=== PATIENT | female | born 1960 | race Caucasian/White ===

== ENCOUNTER 2017-01-04 19:06 | Observation (INO) ==
[2017-01-04 19:37] LABS: Basophils % 0.2 %; Eosinophils % 0.5 %; Hemoglobin 9.2 g/dL (11.5-15.4); Lymphocytes # 0.6 K/mcL (0.6-4.6); Lymphocytes % 9.5 %; Mean Corpuscular HGB Conc 32.9 g/dL (31.6-35.5); Mean Corpuscular Volume 91.2 fL (83.0-100.0); Mean Platelet Volume 9.9 fL (9.4-12.4); Monocytes # 0.3 K/mcL (0.0-1.3); Monocytes % 5.2 %; Neutrophils # 4.8 K/mcL (1.6-8.9); Red Blood Count 3.07 M/mcL (3.82-4.97); Red Cell Distribution Width 15.2 % (11.5-14.5); Segmented Neutrophils % 83.6 %
[2017-01-04 19:39] LABS: Platelet Count 65 K/mcL (140-400)
--- NOTE | 2017-01-04 19:42 | Emergency Department Note ---
Disposition Clinical Impression: Hyperkalemia Disposition: Admitted As Inpatient Condition: Good Referrals: Adria Alba CNP [Primary Care Provider] - Forms: ED Satisfaction Letter Time of Disposition: 19:58 Recheck wound or abnormal lab - General Chief Complaint: ED Recheck/Abnormal Lab/Rx Stated Complaint: Possible Hyperkalemia Time Seen by Provider: 01/04/17 19:15 Source: patient Mode of arrival: ambulatory Limitations: no limitations, physical limitation Nursing Notes Reviewed: Yes Vital Signs Reviewed: Yes - History of Present Illness HPI Narrative: Patient received a phone call from Adria Alba that her potassium was too high and she did not emergency room immediately she was not given a number she is here she denies any complaints at this time she is status post renal transplant in 2010 as had few complications since then any additional complaints Pt Subjective Complaint: abnormal lab(s) Context: called for abnormal lab result Associated symptoms: none - Related Data Home Medications Medication Instructions Recorded Confirmed Allopurinol [Zyloprim] 300 mg PO DAILY 01/04/17 01/04/17 Atorvastatin [Lipitor] 20 mg PO HS 01/04/17 01/04/17 Benazepril HCl [Lotensin] 30 mg PO 01/04/17 Carvedilol [Coreg] 25 mg PO BID 01/04/17 01/04/17 CycloSPORINE, Mod (Neoral) [Neoral] 75 mg PO BID 01/04/17 01/04/17 Escitalopram [Lexapro] 10 mg PO DAILY 01/04/17 01/04/17 Famotidine [Pepcid] 20 mg PO QPM 01/04/17 01/04/17 Ferrous Sulfate [Iron] 325 mg PO 01/04/17 Folic Acid 1 mg PO DAILY 01/04/17 01/04/17 Mycophenolate Mofetil [Cellcept] 500 mg PO BID 01/04/17 01/04/17 PredniSONE 7.5 mg PO DAILY 01/04/17 01/04/17 Sulfamethoxazole/Trimethoprim 1 each PO DAILY 01/04/17 01/04/17 [Sulfamethoxazole-Tmp Ss Tablet] Allergies Allergy/AdvReac Type Severity Reaction Status Date / Time Penicillins [PCN] Allergy Anaphylaxis Verified 01/04/17 19:19 All systems ED: reviewed and negative except as stated. Constitutional: Denies: fever, chills, weakness Eyes: Denies: vision change ENT ED: Denies: ear pain Cardiovascular: Denies: chest pain Respiratory: Denies: cough Gastrointestinal: Denies: abdominal pain Genitourinary: Denies: urgency Musculoskeletal: Denies: back pain Integumentary: Denies: abrasion Neurological: Denies: headache Psychiatric: Denies: anxiety Endocrine: Reports: fatigue Hematological/Lymphatic: Denies: easy bleeding Allergic/Immunologic: Denies: facial swelling Past Medical History - Past Medical History Attestation: Yes The following information was validated with the patient. Source: patient, old records reviewed, nursing notes reviewed Medical history: Reports: arthritis, GERD, hyperlipidemia, hypertension, osteoporosis, renal disease, other Psychiatric history: Reports: anxiety, depression - Social History Smoking Status: Never smoker Smokeless Tobacco Status: No Alcohol use: Reports: none Drug use: Reports: none Physical Exam - General Limitations: no limitations, physical limitation General appearance: alert, in no apparent distress - Head Head exam: atraumatic, normocephalic, normal inspection - Eye Eye exam: Present: normal appearance, PERRL, EOMI (Slight amount of erythema noted in the superior and inferior lids noted an little bit of an ashen color that this appears to be more of her normal collar by looking at her skin) - ENT ENT exam: normal exam, normal oropharynx, mucous membranes moist, normal external ear exam - Neck Neck exam: Present: normal inspection, full ROM, trachea midline - Chest Chest inspection: Present: normal inspection, symmetric chest wall rise - Respiratory Respiratory exam: Present: normal lung sounds bilaterally - Cardiovascular Cardiovascular exam: Present: regular rate, normal rhythm, normal heart sounds - Abdominal Exam Abdominal exam: Present: soft, Non-Tender, normal bowel sounds - Expanded Upper Extremity Exam Shoulder exam: Present: normal inspection, full ROM Arm exam: Present: normal inspection, full ROM Elbow exam: Present: normal inspection, full ROM Forearm/Wrist exam: Present: normal inspection, full ROM Hand exam: Present: normal inspection, full ROM Vascular exam: Normal: capillary refill, radial pulse - Expanded Lower Extremity Exam Hip/Pelvis exam: Present: normal inspection, full ROM Upper leg exam: Present: normal inspection, full ROM Knee exam: Present: normal inspection, full ROM Lower leg exam: Present: normal inspection, full ROM Ankle exam: Present: normal inspection, full ROM Foot/toe exam: Present: normal inspection, full ROM Neurovascular/Tendon exam: Present: normal capillary refill, normal fine/light touch. Absent: motor deficit, sensory deficit, tendon deficit Gait: observed and normal - Back Exam Back exam: Present: normal inspection, full ROM. Absent: muscle spasm - Neurological Exam Neurological exam: Present: alert, oriented X3, CN II-XII intact - Psychiatric Psychiatric exam: Present: normal affect, normal mood - Skin Skin exam: Present: warm, dry, intact, normal color Course Course Narrative: Patient seen and examined have repeated awaiting results - Reevaluation(s) Reevaluation #1: She will with potassium of 6.6 so agreed to the Kayexalate and treatment management discharged home stable Vital Signs Temperature 98.4 F 01/04/17 19:07 Pulse Rate 110 01/04/17 19:07 Respiratory Rate 18 01/04/17 19:07 Blood Pressure 149/55 01/04/17 19:07 O2 Sat by Pulse Oximetry 97 01/04/17 19:07 Temperature 98.4 F 01/04/17 19:20 Pulse Rate 110 01/04/17 19:20 Respiratory Rate 18 01/04/17 19:20 Blood Pressure 149/55 01/04/17 19:20 O2 Sat by Pulse Oximetry 97 01/04/17 19:20 Oxygen Delivery Oxygen Delivery Room Air Recheck wound or abnormal lab - MDM Narrative Medical decision making narrative: Hyperkalemia versus hypokalemia versus normal potassium - Medical Records Medical records reviewed: Yes I reviewed the patient's medical records. - Lab Data Lab results reviewed: Yes I reviewed the patient's lab results. Result diagrams: 01/04/17 19:23 01/04/17 19:23 Lab Results 01/04/17 01/04/17 Range/Units 19:23 19:23 WBC 5.8 (4.3-11.1) K/mcL RBC 3.07 L (3.82-4.97) M/mcL Hgb 9.2 L (11.5-15.4) g/dL Hct 28.0 L (35.3-44.9) % MCV 91.2 (83.0-100.0) fL MCH 30.0 (28.0-33.3) pg MCHC 32.9 (31.6-35.5) g/dL RDW 15.2 H (11.5-14.5) % Plt Count 65 L (140-400) K/mcL MPV 9.9 (9.4-12.4) fL Immature Gran % 1.0 (0-4) % Seg Neutrophils % 83.6 % Lymphocytes % 9.5 % Monocytes % 5.2 % Eosinophils % 0.5 % Basophils % 0.2 % Neutrophils # 4.8 (1.6-8.9) K/mcL Lymphocytes # 0.6 (0.6-4.6) K/mcL Monocytes # 0.3 (0.0-1.3) K/mcL Eosinophils # 0.0 (0.0-0.6) K/mcL Basophils # 0.0 (0.0-0.2) K/mcL Sodium 132 L (136-145) mEq/L Potassium 6.6 H* (3.5-4.5) mEq/L Chloride 109 (98-109) mEq/L Carbon Dioxide 13 L (19-29) mEq/L BUN 59 H (7-20) mg/dL Creatinine 2.16 H (0.57-1.11) mg/dL Est GFR ( Amer) 29 L (> 60) Est GFR (Non-Af Amer) 24 L (> 60) BUN/Creatinine Ratio 27 H (6-26) Glucose 212 H (70-99) mg/dL Calculated Osmolality 297 (280-300) Calcium 9.8 (8.6-10.8) mg/dL Critical Care Time Critical Care Time: Yes Total Critical Care Time: 35 Attestation: Critical care performed: 5 minutes as the result of the high potassium to give her medications to decrease the potassium while here in the emergency room and get it started patient's showing no evidence of ectopy at this time patient be maintained on a monitor received Kayexalate calcium chloride dextrose due to her renal failure previously at this time we will not give any additional fluids spoke with Dr. Silva Time is exclusive of separately billable procedures. Time includes: direct patient care, patient reassessment, coordination of patient care, interpretation of data (laboratory data, radiology data, and respiratory data), review of patient's medical records, medical consultation and documentation of patient care. Procedures included in critical care time: Procedures excluded from critical care time:
[2017-01-04 19:47] LABS: Calcium 9.8 mg/dL (8.6-10.8)
[2017-01-04 19:48] LABS: Potassium 6.6 mEq/L (3.5-4.5)
[2017-01-04] MEDS ORDERED: Insulin Human Regular 10 UNIT in 0.9 % Sodium Chloride 10 ML IV ONE (19:49)
[2017-01-04] MEDS ORDERED: *HR* Dextrose 50 % in Water (Syg) 50 ML SYRINGE IVP ONE (19:49)
[2017-01-04] MEDS ORDERED: Calcium Chloride 1,000 MG in 0.9 % Sodium Chloride 100 ML IVPB ONE (19:49)
[2017-01-04] MEDS ORDERED: Ondansetron ODT 4 MG TAB.RAPDIS SL PRN (21:11)
[2017-01-04] MEDS ORDERED: Naloxone 0.4 MG/ML INJ IVP PRN (21:11)
[2017-01-04] MEDS ORDERED: Acetaminophen 325 MG TABLET PO PRN (21:11)
[2017-01-04] MEDS ORDERED: CycloSPORINE, Mod (Neoral) 25 MG CAPSULE PO SCH (21:11)
[2017-01-05 05:51] LABS: Basophils % 0.2 %; Eosinophils # 0.1 K/mcL (0.0-0.6); Eosinophils % 1.3 %; Hematocrit 26.1 % (35.3-44.9); Hemoglobin 8.4 g/dL (11.5-15.4); Immature Granulocytes % 1.1 % (0-4); Lymphocytes # 0.6 K/mcL (0.6-4.6); Lymphocytes % 12.7 %; Mean Corpuscular HGB Conc 32.2 g/dL (31.6-35.5); Mean Corpuscular Hemoglobin 29.7 pg (28.0-33.3); Mean Corpuscular Volume 92.2 fL (83.0-100.0); Mean Platelet Volume 10.5 fL (9.4-12.4); Monocytes # 0.4 K/mcL (0.0-1.3); Neutrophils # 3.6 K/mcL (1.6-8.9); Red Blood Count 2.83 M/mcL (3.82-4.97); Red Cell Distribution Width 14.9 % (11.5-14.5); Segmented Neutrophils % 76.7 %
[2017-01-05 05:56] LABS: INR 1.1; Prothrombin Time 11.6 Seconds (9.4-12.1)
[2017-01-05 05:59] LABS: Activated Partial Thrombo Time 27.5 Seconds (26.0-36.0)
[2017-01-05 06:05] LABS: Calcium 10.3 mg/dL (8.6-10.8); Magnesium 1.9 mg/dL (1.6-2.6); Phosphorous 2.9 mg/dL (2.3-4.7)
[2017-01-05 06:24] LABS: Potassium 6.5 mEq/L (3.5-4.5)
[2017-01-05 06:34] LABS: Platelet Count 68 K/mcL (140-400)
[2017-01-05] MEDS ORDERED: CYCLOSPORINE 75 MG PO SCH (09:00)
[2017-01-05] MEDS: PredniSONE 5 MG TABLET PO SCH (09:16)
[2017-01-05] MEDS: Sulfamethoxazole/Trimeth DS 1 EACH TABLET PO SCH (09:16)
[2017-01-05] MEDS: Folic Acid 1 MG TABLET PO SCH (09:18)
[2017-01-05] MEDS: CYCLOSPORINE 25 MG PO SCH ×2 (11:06→21:57)
--- NOTE | 2017-01-05 14:37 | Internal Med History&Physical ---
Date of Encounter: 01/05/17 Time of Encounter: 14:05 Assessment and Plan (1) Hyperkalemia Current visit: Yes Status: Acute Suspect due to acute on chronic renal failure. She will be given IV fluids and Kayexalate. Further workup will be done as needed (2) CKD (chronic kidney disease) stage 4, GFR 15-29 ml/min Current visit: Yes Status: Chronic Status post cadaveric kidney transplant 2010. We will give IV fluids and monitor renal indices. (3) Anemia Current visit: Yes Status: Chronic We will check anemia testing in a.m. Qualifiers: Anemia type: unspecified type Qualified Code(s): D64.9 - Anemia, unspecified (4) Hyperglycemia Current visit: Yes Status: Acute We will order hemoglobin A1c in a.m. Internal Medicine - H&P: HPI Chief complaint: Hyperkalemia Admitted From: Home Plans for Post Hospital Care: Home History of present illness: Ms. Diaz is a 56 year old female who came to emergency room at the instruction of her PCP office after hypokalemia was found on blood draw done earlier in the day. Patient denies any complaints but was simply following orders to come to emergency room. She was evaluated and hyperkalemia was confirmed with potassium level 6.6. She had impaired renal function with creatinine 2.16 and estimated GFR of 24. Serum CO2 was 13. She was admitted to [facility] floor for ongoing care needs. She has a history of chronic kidney disease stage V and was on hemodialysis until 2010 she underwent right kidney cadaveric transplant. She follows at [facility] on a every 6-12 month basis. Last visit was November 2016 and she states she received a satisfactory report although she does not know details of renal indices. Creatinine at a April 2015 [facility] hospitalization was 1.39 with an estimated GFR 40. Past Med Surg Social Fam HX - Past Medical History Medical history: arthritis, GERD, hyperlipidemia, hypertension, osteoporosis, renal disease, other Psychiatric history: anxiety, depression - Social History Smoking Status: Never smoker Smokeless Tobacco Status: No Alcohol use: none Drug use: none - Family History Mother Living Status: Father Living Status: Still Living Internal Medicine - H&P: Meds Allopurinol [Zyloprim] 300 mg PO DAILY 01/04/17 [History] Atorvastatin [Lipitor] 20 mg PO HS 01/04/17 [History] Benazepril HCl [Lotensin] 30 mg PO 01/04/17 [History] Carvedilol [Coreg] 25 mg PO BID 01/04/17 [History] CycloSPORINE, Mod (Neoral) [Neoral] 75 mg PO BID 01/04/17 [History] Escitalopram [Lexapro] 10 mg PO DAILY 01/04/17 [History] Famotidine [Pepcid] 20 mg PO QPM 01/04/17 [History] Ferrous Sulfate [Iron] 325 mg PO 01/04/17 [History] Folic Acid 1 mg PO DAILY 01/04/17 [History] Mycophenolate Mofetil [Cellcept] 500 mg PO BID 01/04/17 [History] PredniSONE 7.5 mg PO DAILY 01/04/17 [History] Sulfamethoxazole/Trimethoprim [Sulfamethoxazole-Tmp Ss Tablet] 1 each PO DAILY 01/04/17 [History] Allergies Penicillins [PCN] Allergy (Verified 01/04/17 19:19) Anaphylaxis All Systems PM: A 10-system review of systems was performed and is negative for pertinent findings except as documented above in the HPI. Review of systems: Gen.: Her weight has been stable past few months Cardiovascular: She has a history of hypertension but denies [place] heart failure angina DVT or pulmonary embolus. She thinks she had EST over 10 years ago which was unremarkable Respiratory: She is a lifelong nonsmoker but denies known chronic lung disease. She does use Proventil inhaler when necessary GI: Has GERD but denies disorders of her liver gallbladder or exocrine pancreas : As per history of present illness Neurologic: She denies large distribution strokes or seizures Endocrine: She has hyperlipidemia but denies diabetes or known thyroid disease Hematology/oncology: She denies blood disorders or cancers but does have history of anemia. Psychiatric: She has depression but denies anxiety or other mental health issues Musculoskeletal: She has rheumatoid arthritis and osteoporosis. She has had spinal surgery at [facility] June 2015 with plate and screw procedure for degenerative disc disease. She had postoperative right foot drop but does not routinely uses an AFO splint. She had left hip replacement at age 11 and again at age 39. 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 The implanted joint was removed February 2015 with a spacer placed. She has since had fusion of the joint with nuno insertion. - Constitutional Vitals: Temp Pulse Resp BP Pulse Ox 97.8 F 69 18 145/69 100 01/05/17 10:05 01/05/17 10:05 01/05/17 10:05 01/05/17 10:05 01/05/17 10:05 Exam: Gen.: She is a well-developed well-nourished female who appears in no severe distress at present time. HEENT: Head is atraumatic and normocephalic. Eyes: EOMI. There is no scleral icterus. Mouth: Mucosa is moist. Neck: Supple and nontender. There is no thyromegaly or adenopathy noted. Heart: Regular without murmurs gallops or ectopics. Lungs: No wheezes or crackles heard. Abdomen: She has a large abdomen. It is soft and nontender to palpation. No masses or guarding are noted. Extremities: There is no cyanosis edema or clubbing noted. Dorsalis pedis and posterior tibial pulses are trace palpable bilaterally. She has mild intrinsic muscle atrophy of her hands. Neurologic: Mental status: She is talkative and a good historian. Cranial nerves: Smile is symmetric. Forehead wrinkles bilaterally. Tongue protrudes midline. EOMI. Motor: There is no pronator drift. She has right foot drop. Cerebellar: Finger to nose is intact bilaterally. Skin: Warm and dry Internal Med - H&P Results - Labs CBC & Chem 7: 01/05/17 04:37 01/05/17 04:37 Labs: Short CBC 01/05/17 Range/Units 04:37 WBC 4.6 (4.3-11.1) K/mcL Hgb 8.4 L (11.5-15.4) g/dL Hct 26.1 L (35.3-44.9) % Plt Count 68 L (140-400) K/mcL Neutrophils # 3.6 (1.6-8.9) K/mcL BMP 01/05/17 04:37 Sodium 135 L Potassium 6.5 H* Chloride 111 H Carbon Dioxide 16 L BUN 56 H Creatinine 1.96 H Glucose 119 H Calcium 10.3
[2017-01-05] MEDS: D5% in Water 1,000 ML IVC SCH (15:40)
[2017-01-05] MEDS ORDERED: *HR* Dextrose 50 % in Water (Syg) 50 ML SYRINGE IVP PRN (16:19)
[2017-01-05] MEDS ORDERED: D5% in Water 1,000 ML IV PRN (16:19)
[2017-01-05] MEDS ORDERED: Dextrose Gel 15 GM PO PRN ×2 (16:19)
[2017-01-05] MEDS: Famotidine 20 MG TABLET PO SCH (16:21)
[2017-01-05] MEDS: Insulin LISPRO 300 UNITS/3 ML VIAL SQ SCH ×2 (16:44→21:59)
[2017-01-05] MEDS: MYCOPHENOLATE 500MG PO SCH (21:56)
[2017-01-06] MEDS: D5% in Water 1,000 ML IVC SCH ×2 (04:17→16:48)
[2017-01-06 06:00] LABS: Basophils % 0.2 %; Eosinophils # 0.1 K/mcL (0.0-0.6); Eosinophils % 1.2 %; Hematocrit 25.8 % (35.3-44.9); Hemoglobin 8.4 g/dL (11.5-15.4); Immature Granulocytes % 1.5 % (0-4); Lymphocytes # 0.6 K/mcL (0.6-4.6); Lymphocytes % 14.5 %; Mean Corpuscular HGB Conc 32.6 g/dL (31.6-35.5); Mean Corpuscular Hemoglobin 29.4 pg (28.0-33.3); Mean Corpuscular Volume 90.2 fL (83.0-100.0); Mean Platelet Volume 10.3 fL (9.4-12.4); Monocytes # 0.4 K/mcL (0.0-1.3); Monocytes % 8.5 %; Red Blood Count 2.86 M/mcL (3.82-4.97); Segmented Neutrophils % 74.1 %
[2017-01-06 06:05] LABS: Platelet Count 61 K/mcL (140-400)
[2017-01-06 06:22] LABS: Uric Acid 3.6 mg/dL (2.6-6.0)
[2017-01-06 06:24] LABS: Albumin 3.1 g/dL (3.5-5.0); Albumin/Globulin Ratio 1.5 (1.1-2.2); Bilirubin,Total 0.5 mg/dL (0.2-1.2); Calcium 9.3 mg/dL (8.6-10.8); Globulin 2.1 g/dL (2.4-3.5); Potassium 5.3 mEq/L (3.5-4.5); Total Protein 5.2 g/dL (6.0-8.3)
[2017-01-06] MEDS: Sulfamethoxazole/Trimeth DS 1 EACH TABLET PO SCH (07:55)
[2017-01-06] MEDS: PredniSONE 5 MG TABLET PO SCH (07:56)
[2017-01-06] MEDS: Insulin LISPRO 300 UNITS/3 ML VIAL SQ SCH ×4 (07:57→21:02)
[2017-01-06] MEDS: Folic Acid 1 MG TABLET PO SCH (07:58)
[2017-01-06] MEDS: MYCOPHENOLATE 500MG PO SCH ×2 (08:00→21:06)
[2017-01-06] MEDS: CYCLOSPORINE 25 MG PO SCH ×2 (08:00→21:06)
--- NOTE | 2017-01-06 10:45 | Internal Med Progress Note ---
Date of Encounter: 01/06/17 Time of Encounter: 10:35 - Assessment and plan (1) Hyperkalemia Current Visit: Yes Status: Acute Assessment and plan: January 06. Improved. We will give additional Kayexalate and continue IV fluids. (2) CKD (chronic kidney disease) stage 4, GFR 15-29 ml/min Current Visit: Yes Status: Chronic Assessment and plan: January 06. Improved. Continue IV fluids and monitor renal indices. (3) Anemia Current Visit: Yes Status: Chronic Assessment and plan: January 06. Anemia testing is pending Qualifiers: Anemia type: unspecified type Qualified Code(s): D64.9 - Anemia, unspecified (4) Hyperglycemia Current Visit: Yes Status: Acute Assessment and plan: January 06. Hemoglobin A1c is pending - Subjective Interval history: January 06. She has no new complaints and feels well. - Constitutional Vitals: Temp Pulse Resp BP Pulse Ox 98.2 F 65 18 164/76 98 01/06/17 06:28 01/06/17 06:28 01/06/17 06:28 01/06/17 06:28 01/06/17 06:28 Exam: She is sitting in a chair at bedside and appears comfortable. Her affect is bright and cheerful. I reviewed her medications and lab results Internal Medicine: Result - Labs CBC & Chem 7: 01/06/17 05:25 01/06/17 05:25 Labs: Short CBC 01/06/17 Range/Units 05:25 WBC 4.1 L (4.3-11.1) K/mcL Hgb 8.4 L (11.5-15.4) g/dL Hct 25.8 L (35.3-44.9) % Plt Count 61 L (140-400) K/mcL Neutrophils # 3.0 (1.6-8.9) K/mcL BMP 01/06/17 05:25 Sodium 134 L Potassium 5.3 H D Chloride 110 H Carbon Dioxide 15 L BUN 46 H D Creatinine 1.71 H Glucose 189 H Calcium 9.3 Liver Function 01/06/17 Range/Units 05:25 Total Bilirubin 0.5 (0.2-1.2) mg/dL AST 13 (5-34) Units/L ALT 17 (0-55) Units/L Alkaline Phosphatase 159 H (38-126) Units/L Albumin 3.1 L (3.5-5.0) g/dL - ABG Interpretation ABG results: PT/INR, D-dimer PT 11.6 Seconds (9.4-12.1) 01/05/17 04:37 Consult Discharge Plan - Plan Referrals: Adria Alba CNP [Primary Care Provider] - 1 week
[2017-01-06 15:47] LABS: Hemoglobin A1C 6.6 %
[2017-01-06 16:27] LABS: Folate 16.3 ng/mL (7.0-31.4)
[2017-01-06] MEDS: Famotidine 20 MG TABLET PO SCH (18:10)
[2017-01-07 06:34] LABS: Basophils % 0.2 %; Eosinophils # 0.1 K/mcL (0.0-0.6); Eosinophils % 1.5 %; Hematocrit 25.5 % (35.3-44.9); Hemoglobin 8.4 g/dL (11.5-15.4); Immature Granulocytes % 1.5 % (0-4); Lymphocytes # 0.6 K/mcL (0.6-4.6); Lymphocytes % 13.4 %; Mean Corpuscular HGB Conc 32.9 g/dL (31.6-35.5); Mean Corpuscular Hemoglobin 29.7 pg (28.0-33.3); Mean Corpuscular Volume 90.1 fL (83.0-100.0); Mean Platelet Volume 9.6 fL (9.4-12.4); Monocytes # 0.4 K/mcL (0.0-1.3); Monocytes % 8.5 %; Neutrophils # 3.5 K/mcL (1.6-8.9); Red Blood Count 2.83 M/mcL (3.82-4.97); Segmented Neutrophils % 74.9 %
[2017-01-07 06:37] LABS: Platelet Count 54 K/mcL (140-400)
[2017-01-07] MEDS: D5% in Water 1,000 ML IVC SCH (06:49)
[2017-01-07 06:54] LABS: Calcium 8.8 mg/dL (8.6-10.8); Potassium 4.6 mEq/L (3.5-4.5)
[2017-01-07 07:32] VITALS: BP 159/66
--- NOTE | 2017-01-07 10:01 | Discharge Summary ---
Date of Encounter: 01/07/17 Time of Encounter: 09:40 - Discharge Diagnosis (1) Hyperkalemia Priority: Primary Status: Resolved (2) CKD (chronic kidney disease) stage 4, GFR 15-29 ml/min Priority: Secondary Status: Chronic (3) Anemia Priority: Secondary Status: Chronic Qualifiers: Anemia type: unspecified type Qualified Code(s): D64.9 - Anemia, unspecified (4) DM type 2 (diabetes mellitus, type 2) Priority: Secondary Status: Chronic Qualifiers: Diabetes mellitus complication status: with kidney complications Diabetes mellitus complication detail: with chronic kidney disease Diabetes mellitus equipment operator intermodal yard insulin use: without equipment operator intermodal yard use Chronic kidney disease stage: stage 4 (severe) Qualified Code(s): E11.22 - Type 2 diabetes mellitus with diabetic chronic kidney disease; N18.4 - Chronic kidney disease, stage 4 (severe ) - Discharge Medications Prescriptions: CloNIDine HCl 0.1 mg PO TID #90 tablet Cyanocobalamin (B-12) [Vitamin B12] 1,000 mcg PO DAILY #90 tablet Home Medications: Allopurinol [Zyloprim] 300 mg PO DAILY 01/04/17 [History] Atorvastatin [Lipitor] 20 mg PO HS 01/04/17 [History] Carvedilol [Coreg] 25 mg PO BID 01/04/17 [History] CycloSPORINE, Mod (Neoral) [Neoral] 75 mg PO BID 01/04/17 [History] Escitalopram [Lexapro] 10 mg PO DAILY 01/04/17 [History] Famotidine [Pepcid] 20 mg PO QPM 01/04/17 [History] Ferrous Sulfate [Iron] 325 mg PO 01/04/17 [History] Folic Acid 1 mg PO DAILY 01/04/17 [History] Mycophenolate Mofetil [Cellcept] 500 mg PO BID 01/04/17 [History] PredniSONE 7.5 mg PO DAILY 01/04/17 [History] Sulfamethoxazole/Trimethoprim [Sulfamethoxazole-Tmp Ss Tablet] 1 each PO DAILY 01/04/17 [History] CloNIDine HCl 0.1 mg PO TID #90 tablet 01/07/17 [Rx] Cyanocobalamin (B-12) [Vitamin B12] 1,000 mcg PO DAILY #90 tablet 01/07/17 [Rx] Allergies/Adverse Reactions: Allergies Penicillins [PCN] Allergy (Verified 01/04/17 19:19) Anaphylaxis Date of admission: 01/04/17 20:22 Primary care physician: Adria Alba CNP Consults: 01/04/17 21:58 Consult to Nutrition [CONS] Routine Comment: Consulting Provider: NUTRITION Reason for Dietary Consult: MST Score 01/04/17 22:14 Consult to Nutrition [CONS] Routine Comment: Consulting Provider: NUTRITION Reason for Dietary Consult: MST Score - Patient Status Disposition: Home, Self-Care Condition: Good Overall status at discharge: patient is progressing back to baseline - Discharge Instructions Follow Up With: Adria Alba CNP [Primary Care Provider] - 1 week - Diet and Activity Activity: resume usual activities as tolerated Diet: diabetic diet Hospital course: Ms. Diaz is a 56 year old female who came to emergency room at the instruction of her PCP office after hyperkalemia was found on blood draw done earlier in the day. Patient denies any complaints but was simply following orders to come to emergency room. She was evaluated and hyperkalemia was confirmed with potassium level 6.6. She had impaired renal function with creatinine 2.16 and estimated GFR of 24. Serum CO2 was 13. She was admitted to [facility] floor for ongoing care needs. Initial orders were written by the emergency room physician. I saw her on January 05 and performed the history and physical. Benazepril was discontinued and she was given IV fluids and Kayexalate. Her potassium gradually decreased to 4.6 the day of discharge. Her azotemia improved with creatinine decreasing from 2.16 on admission to 1.70 with estimated GFR of 31 on the day of discharge. Her serum CO2 level wilian to 15. I reviewed past labs and note her serum CO2 has been decreased in over half of lab draws since February 2015. She denied dyspnea or other complaints on the day of discharge and felt stable for discharge home. She will follow with her PCP Adria Alba CNP within 1 week. Anemia testing showed iron 81, transferrin saturation 35%, transferrin 166, ferritin 1791, B12 196, and folate 16.3. She will be given oral B12 1000 micrograms daily. I will let her PCP and/or renal team at [facility] determine if ferrous sulfate can be discontinued. Hemoglobin A1c returned acceptable at 6.6%. I explained to her that she did have DM 2 but adequately controlled at this time. I encouraged her to closely follow a diabetic diet. Her PCP can address the need for medication at the follow-up visit in a few days. - Time Spent with Patient Total time spent providing and/or coordinating discharge services: - Constitutional Vitals: Temp Pulse Resp BP Pulse Ox 97.6 F 77 16 159/66 97 01/07/17 07:29 01/07/17 07:29 01/07/17 07:29 01/07/17 07:29 01/07/17 07:29
[2017-01-07] MEDS: CYCLOSPORINE 25 MG PO SCH (11:02)
[2017-01-07] MEDS: MYCOPHENOLATE 500MG PO SCH (11:02)
[2017-01-07] MEDS: PredniSONE 5 MG TABLET PO SCH (11:02)
[2017-01-07] MEDS: Insulin LISPRO 300 UNITS/3 ML VIAL SQ SCH (11:03)
[2017-01-07] MEDS: Sulfamethoxazole/Trimeth DS 1 EACH TABLET PO SCH (11:03)
[2017-01-07] MEDS: Folic Acid 1 MG TABLET PO SCH (11:03)
== END 2017-01-07 12:58 | disposition home or self-care (01) ==
LOC: EMEROOPIK 19:06 → INPPIK 19:06
PROVIDERS: ADMIT Internal Medicine; ATTEND Internal Medicine

== ENCOUNTER 2019-08-23 09:37 | Inpatient (IN) ==
[2019-08-23] MEDS ORDERED: 0.9 % Sodium Chloride 500 ML IVC ONE (09:50)
--- NOTE | 2019-08-23 09:56 | Emergency Department Note ---
Disposition Clinical Impression: Chest x-ray abnormality Urinary tract infection Qualifiers: Urinary tract infection type: site unspecified Hematuria presence: without hematuria Qualified Code(s): N39.0 - Urinary tract infection, site not specified Disposition: Admitted As Inpatient Condition: Fair Referrals: Deshawn Avina MD [Primary Care Provider] - Forms: ED Satisfaction Letter Time of Disposition: 12:20 Fever HPI - General Chief Complaint: ED Fever Stated Complaint: fever, nausea Time Seen by Provider: 08/23/19 09:45 Source: patient, EMS Mode of arrival: EMS Limitations: no limitations Nursing Notes Reviewed: Yes Vital Signs Reviewed: Yes - History of Present Illness Pt Subjective Complaint: fever Onset (ago): day(s) (Patient says a couple days) Maximum Temperature Reported: 103 F Temperature Source: oral Context: on immunosuppressant(s) Associated symptoms: Reports: chills, myalgias, cough Improves with: nothing Worsens with: nothing Treatments prior to arrival fever: acetaminophen - Related Data Home Medications Medication Instructions Recorded Confirmed Allopurinol [Zyloprim] 300 mg PO DAILY 06/09/17 08/23/19 Sodium Bicarbonate 4 tab PO TID 06/09/17 08/23/19 Calcitriol 0.5 mcg PO DAILY 07/11/18 08/23/19 Dasatinib [Sprycel] 100 mg PO HS 07/11/18 08/23/19 Famotidine [Heartburn Prevention] 20 mg PO DAILY 07/11/18 08/23/19 Folic Acid 1 mg PO DAILY 07/11/18 08/23/19 Mirtazapine 7.5 mg PO HS 07/11/18 08/23/19 hydrALAZINE [HydrALAZINE] 75 mg PO Q8H 07/11/18 08/23/19 predniSONE [PredniSONE] 5 mg PO DAILY 07/11/18 08/23/19 Citalopram Hydrobromide 20 mg PO DAILY 02/10/19 08/23/19 [Citalopram HBr] Cyanocobalamin (Vitamin B-12) 1,000 mcg PO DAILY 02/10/19 08/23/19 [Vitamin B12] Docusate [Colace] 100 mg PO BID 02/10/19 08/23/19 Atemovir 480 PO DAILY 05/11/19 DAPTOmycin [Daptomycin] 400 mg IV QSHIFT 05/11/19 05/11/19 Dronabinol [Marinol] 2.5 mg PO DAILY 05/11/19 08/23/19 Gabapentin [Neurontin] 100 mg PO BID 05/11/19 08/23/19 Acetaminophen [Non-Aspirin] 650 mg PO Q6H PRN 08/23/19 08/23/19 Ascorbic Acid [Vitamin C] 500 mg PO BID 08/23/19 08/23/19 Cephalexin [Keflex] 250 mg PO BID 08/23/19 08/23/19 DiphenhydraMINE [Benadryl] 25 mg PO Q6HR PRN 08/23/19 08/23/19 Letermovir [Prevymis] 480 mg PO HS 08/23/19 08/23/19 Lisinopril [Zestril] 10 mg PO DAILY 08/23/19 08/23/19 Loperamide HCl [Imodium A-D] 2 mg PO Q6HR PRN 08/23/19 08/23/19 Patiromer Calcium Sorbitex 8.4 gm PO HS 08/23/19 08/23/19 [Veltassa] Sennosides [Senna] 2 tab PO DAILY 08/23/19 08/23/19 Tramadol HCl [Ultram] 50 mg PO BID PRN 08/23/19 08/23/19 amLODIPine [Norvasc] 5 mg PO DAILY 08/23/19 08/23/19 Allergies Allergy/AdvReac Type Severity Reaction Status Date / Time hydrocodone Allergy See Verified 08/23/19 09:43 Comments hydromorphone [From Dilaudid] Allergy See Verified 08/23/19 09:43 Comments morphine Allergy See Verified 08/23/19 09:43 Comments Penicillins [PCN] Allergy Anaphylaxis Verified 08/23/19 09:43 Sulfa (Sulfonamide Allergy Anaphylaxis Verified 08/23/19 09:43 Antibiotics) All systems ED: reviewed and negative except as stated. Constitutional: Reports: fever, chills ENT ED: Denies: ear pain, throat pain, congestion Cardiovascular: Denies: chest pain, palpitations Respiratory: Reports: cough. Denies: dyspnea Gastrointestinal: Reports: nausea. Denies: vomiting, diarrhea Genitourinary: Denies: urgency, dysuria, frequency Musculoskeletal: Denies: back pain Integumentary: Denies: rash Neurological: Denies: headache Fever PMH - Past Medical History Medical history: Reports: arthritis, cancer, diabetes, dialysis, GERD, hyper lipidemia, hypertension, osteoporosis, renal disease, seizures Surgical history: Reports: knee replacement (Right), orthopedic, other (Back surgery, ankle fixation, bladder surgery), transplant (Renal), vascular surgery (Left arm AV dialysis shunt) Surgical history: Reports: hip replacement, hysterectomy, knee replacement, orthopedic, other, other, tracheostomy Psychiatric history: Reports: anxiety, depression - Social History Smoking Status: Never smoker Alcohol use: Reports: none Drug use: Reports: none Physical Exam - General Limitations: no limitations General appearance: alert, in no apparent distress - Head Head exam: atraumatic, normocephalic, normal inspection - Eye Eye exam: Present: normal appearance, PERRL, EOMI. Absent: scleral icterus, conjunctival injection - ENT ENT exam: normal oropharynx, mucous membranes dry, TM's normal bilaterally, normal external ear exam - Neck Neck exam: Present: normal inspection, full ROM, trachea midline. Absent: tenderness, meningismus - Chest Chest inspection: Present: normal inspection, symmetric chest wall rise. Absent: tenderness - Respiratory Respiratory exam: Present: normal lung sounds bilaterally. Absent: respiratory distress, wheezes - Cardiovascular Cardiovascular exam: Present: normal rhythm, tachycardia, normal heart sounds - Abdominal Exam Abdominal exam: Present: soft, Non-Tender, normal bowel sounds - Extremities Exam Extremities exam: Present: normal inspection. Absent: pedal edema - Neurological Exam Neurological exam: Present: alert, oriented X3. Absent: motor sensory deficit - Psychiatric Psychiatric exam: Present: normal affect, normal mood - Skin Skin exam: Present: warm, dry. Absent: rash Course Course Narrative: Patient presents with a febrile illness. She seems a little bit confused as well. She is a renal transplant patient and is on steroids. 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 She has a port in her right chest that does not look large enough to be doing dialysis. She does have a dialysis shunt in her left arm. At this point I am not certain she is actually getting dialysis or not. We will clarify with the long term. However she needs a sepsis workup. We have initiated that. I will give her some IV fluids. Disposition will be based on diagnostic results and reevaluation. - Reevaluation(s) Reevaluation #1: Urine clearly shows urinary tract infection. White count is up to 20,000. This is above patient's baseline. I started her on 2 g of Rocephin IV after she is cultured up. She is to be admitted to the hospital. I have already spoken with the hospitalist who has accepted the patient for admission. Troponin is slightly elevated but consistent with previous values and most likely related to her renal disease. We will continue troponins while in hospital. Chest x-ray is being read as a questionable infiltrate in the right perihilar region. The patient has had a dry cough but no other respiratory symptoms. To be safe I will add Zithromax. Time: 12:15 - Consultations Consultation #1: Dr. Silva, hospitalist - I discussed the case with the hospitalist. He accepted the patient for admission. Time: 12:10 Vital Signs Temperature 103.1 F H 08/23/19 09:43 Pulse Rate 105 08/23/19 09:43 Respiratory Rate 18 08/23/19 09:43 Blood Pressure 131/64 08/23/19 09:43 O2 Sat by Pulse Oximetry 95 08/23/19 09:43 Temperature 99.2 F 08/23/19 10:56 Pulse Rate 91 08/23/19 12:01 Respiratory Rate 18 08/23/19 12:01 Blood Pressure 122/66 08/23/19 12:01 O2 Sat by Pulse Oximetry 99 08/23/19 12:01 Oxygen Delivery Oxygen Delivery Nasal Cannula Fever - Medical Records Medical records reviewed: Yes I reviewed the patient's medical records. - Lab Data Lab results reviewed: Yes I reviewed the patient's lab results. Result diagrams: 08/23/19 10:27 08/23/19 10:27 Lab Results 08/23/19 08/23/19 08/23/19 Range/Units 10:23 10:27 10:27 WBC 20.7 H (4.3-11.1) K/mcL RBC 2.31 L (3.82-4.97) M/mcL Hgb 7.1 L (11.5-15.4) g/dL Hct 22.4 L (35.3-44.9) % MCV 97.0 (83.0-100.0) fL MCH 30.7 (28.0-33.3) pg MCHC 31.7 (31.6-35.5) g/dL RDW 20.2 H (11.5-14.5) % Plt Count 63 L (140-400) K/mcL MPV 8.6 L (9.4-12.4) fL Immature Gran % 3.0 (0-4) % Seg Neutrophils % 90.9 % Lymphocytes % 2.5 % Monocytes % 3.5 % Eosinophils % 0.0 % Basophils % 0.1 % Neutrophils # 18.8 H (1.6-8.9) K/mcL Lymphocytes # 0.5 L (0.6-4.6) K/mcL Monocytes # 0.7 (0.0-1.3) K/mcL Eosinophils # 0.0 (0.0-0.6) K/mcL Basophils # 0.0 (0.0-0.2) K/mcL Platelet Estimate Marked Decrease L (Normal) Hypochromasia Present A (Not Present) Anisocytosis 2+ A (Not Present) Sodium 141 (136-145) mEq/L Potassium 4.2 (3.5-5.1) mEq/L Chloride 107 (98-107) mEq/L Carbon Dioxide 24 (23-29) mEq/L BUN 36 H (6-20) mg/dL Creatinine 2.56 H (0.60-1.20) mg/dL Est GFR ( Amer) 23 L (> 60) Est GFR (Non-Af Amer) 19 L (> 60) BUN/Creatinine Ratio 14 (6-26) Glucose 129 H (70-105) mg/dL Calculated Osmolality 302 H (280-300) Lactic Acid (0.5-2.2) mmol/L Calcium 9.6 (8.6-10.3) mg/dL Total Bilirubin 0.6 (0.3-1.0) mg/dL Direct Bilirubin 0.2 (0.0-0.2) mg/dL Indirect Bilirubin 0.4 (0.0-1.2) mg/dL AST 13 (13-39) Units/L ALT 8 (7-52) Units/L Alkaline Phosphatase 329 H (34-104) Units/L Troponin I 0.11 H* (< 0.04) ng/mL Serum Total Protein 4.9 L (6.4-8.9) g/dL Albumin 2.8 L (3.5-5.7) g/dL Globulin 2.1 L (2.4-3.5) g/dL Albumin/Globulin Ratio 1.3 (1.1-2.2) Urine Color Yellow (Yellow) Urine Clarity Cloudy A (Clear) Urine pH 8.5 H (5.0-8.0) pH Units Ur Specific [place] 1.020 (1.010-1.025) Urine Protein 100 H (Neg-Trace) mg/dL Urine Glucose (UA) Normal (Normal) mg/dL Urine Ketones Negative (Negative) mg/dL Urine Blood Trace-lysed H (Negative) Urine Nitrite Negative (Negative) Urine Bilirubin Negative (Negative) Urine Urobilinogen Normal (Normal) mg/dL Ur Leukocyte Esterase Moderate H (Negative) Urine Microscopic RBC 3-5 H (0-3) per hpf Urine Microscopic WBC TNTC H (0-3) per hpf Ur Squamous Epith Cells Few (None-Few) per lpf Ur Renal Epithelial Cell Few (None-Few) per hpf Urine Bacteria Many H (None-Few) per hpf Ur Culture Indicated? YES A (NO) 08/23/19 Range/Units 10:27 WBC (4.3-11.1) K/mcL RBC (3.82-4.97) M/mcL Hgb (11.5-15.4) g/dL Hct (35.3-44.9) % MCV (83.0-100.0) fL MCH (28.0-33.3) pg MCHC (31.6-35.5) g/dL RDW (11.5-14.5) % Plt Count (140-400) K/mcL MPV (9.4-12.4) fL Immature Gran % (0-4) % Seg Neutrophils % % Lymphocytes % % Monocytes % % Eosinophils % % Basophils % % Neutrophils # (1.6-8.9) K/mcL Lymphocytes # (0.6-4.6) K/mcL Monocytes # (0.0-1.3) K/mcL Eosinophils # (0.0-0.6) K/mcL Basophils # (0.0-0.2) K/mcL Platelet Estimate (Normal) Hypochromasia (Not Present) Anisocytosis (Not Present) Sodium (136-145) mEq/L Potassium (3.5-5.1) mEq/L Chloride (98-107) mEq/L Carbon Dioxide (23-29) mEq/L BUN (6-20) mg/dL Creatinine (0.60-1.20) mg/dL Est GFR ( Amer) (> 60) Est GFR (Non-Af Amer) (> 60) BUN/Creatinine Ratio (6-26) Glucose (70-105) mg/dL Calculated Osmolality (280-300) Lactic Acid 0.4 L (0.5-2.2) mmol/L Calcium (8.6-10.3) mg/dL Total Bilirubin (0.3-1.0) mg/dL Direct Bilirubin (0.0-0.2) mg/dL Indirect Bilirubin (0.0-1.2) mg/dL AST (13-39) Units/L ALT (7-52) Units/L Alkaline Phosphatase (34-104) Units/L Troponin I (< 0.04) ng/mL Serum Total Protein (6.4-8.9) g/dL Albumin (3.5-5.7) g/dL Globulin (2.4-3.5) g/dL Albumin/Globulin Ratio (1.1-2.2) Urine Color (Yellow) Urine Clarity (Clear) Urine pH (5.0-8.0) pH Units Ur Specific [place] (1.010-1.025) Urine Protein (Neg-Trace) mg/dL Urine Glucose (UA) (Normal) mg/dL Urine Ketones (Negative) mg/dL Urine Blood (Negative) Urine Nitrite (Negative) Urine Bilirubin (Negative) Urine Urobilinogen (Normal) mg/dL Ur Leukocyte Esterase (Negative) Urine Microscopic RBC (0-3) per hpf Urine Microscopic WBC (0-3) per hpf Ur Squamous Epith Cells (None-Few) per lpf Ur Renal Epithelial Cell (None-Few) per hpf Urine Bacteria (None-Few) per hpf Ur Culture Indicated? (NO) - Radiology Data Radiology results reviewed: Yes I reviewed the patient's radiology results. - EKG Data EKG attestation: Yes I reviewed and interpreted this EKG. EKG results narrative: Twelve-lead EKG performed at 9:43 AM. Ordered, reviewed and interpreted by ED physician shows sinus tachycardia at a rate of 105. Normal axis. Reasonable R wave progression across precordium but low voltage overall. No obvious acute ischemic changes.
[2019-08-23 10:57] LABS: Basophils % 0.1 %; Hematocrit 22.4 % (35.3-44.9); Hemoglobin 7.1 g/dL (11.5-15.4); Lymphocytes # 0.5 K/mcL (0.6-4.6); Lymphocytes % 2.5 %; Mean Corpuscular HGB Conc 31.7 g/dL (31.6-35.5); Mean Corpuscular Hemoglobin 30.7 pg (28.0-33.3); Mean Platelet Volume 8.6 fL (9.4-12.4); Monocytes # 0.7 K/mcL (0.0-1.3); Monocytes % 3.5 %; Neutrophils # 18.8 K/mcL (1.6-8.9); Red Blood Count 2.31 M/mcL (3.82-4.97); Red Cell Distribution Width 20.2 % (11.5-14.5); Segmented Neutrophils % 90.9 %; White Blood Count 20.7 K/mcL (4.3-11.1)
[2019-08-23 11:00] LABS: Bilirubin,Urine Negative (Negative); Blood,Urine Trace-lysed (Negative); Clarity,Urine Cloudy (Clear); Color,Urine Yellow (Yellow); Glucose,Urine (UA) Normal (Normal); Ketones,Urine Negative (Negative); Leukocyte Esterase,Urine Moderate (Negative); Nitrite,Urine Negative (Negative); PH,Urine 8.5 pH Units (5.0-8.0); Protein,Urine 100 mg/dL (Neg-Trace); Urobilinogen,Urine Normal (Normal)
[2019-08-23 11:08] LABS: Platelet Count 63 K/mcL (140-400)
[2019-08-23 11:10] LABS: Albumin 2.8 g/dL (3.5-5.7); Albumin/Globulin Ratio 1.3 (1.1-2.2); Bilirubin,Direct 0.2 mg/dL (0.0-0.2); Bilirubin,Indirect 0.4 mg/dL (0.0-1.2); Bilirubin,Total 0.6 mg/dL (0.3-1.0); Calcium 9.6 mg/dL (8.6-10.3); Globulin 2.1 g/dL (2.4-3.5); Potassium 4.2 mEq/L (3.5-5.1); Total Protein 4.9 g/dL (6.4-8.9)
[2019-08-23 11:18] LABS: Renal Epithelial Cells,Urine Few per hpf (None-Few); Squamous Epithelial Cell,Urine Few per lpf (None-Few); WBC,Urine TNTC per hpf (0-3)
[2019-08-23 11:19] LABS: Bacteria,Urine Many per hpf (None-Few)
[2019-08-23 11:39] LABS: Anisocytosis 2+ (Not Present); Hypochromasia Present (Not Present); Platelet Estimate Marked Decrease (Normal)
[2019-08-23 11:44] LABS: Troponin I 0.11 ng/mL (< 0.04)
[2019-08-23] MEDS ORDERED: Azithromycin 500 MG in 0.9 % Sodium Chloride 250 ML IVPB ONE (12:22)
[2019-08-23] MEDS ORDERED: Naloxone 0.4 MG/ML INJ IVP PRN (12:40)
[2019-08-23] MEDS ORDERED: traMADol 50 MG TABLET PO PRN (12:40)
[2019-08-23] MEDS ORDERED: Ondansetron 4 MG/2 ML VIAL IVP PRN (12:40)
[2019-08-23] MEDS ORDERED: 0.9 % Sodium Chloride 1,000 ML IVC SCH (12:40)
[2019-08-23] MEDS: hydrALAZINE 25 MG TABLET PO SCH (15:05)
--- NOTE | 2019-08-23 15:50 | Internal Med History&Physical ---
Date of Encounter: 08/23/19 Time of Encounter: 15:15 Assessment and Plan (1) Urinary tract infection Current visit: Yes Status: Acute She was given Rocephin and Zithromax empirically in emergency room. Lactobacillus will be added. Blood and urine cultures have been drawn. Qualifiers: Urinary tract infection type: site unspecified Hematuria presence: without hematuria Qualified Code(s): N39.0 - Urinary tract infection, site not specified (2) Elevated troponin Current visit: Yes Status: Chronic Repeat troponin unchanged from initial ER level. Suspect due in part to chronic kidney disease. (3) CKD (chronic kidney disease) stage 4, GFR 15-29 ml/min Current visit: No Status: Chronic Creatinine stable since April 2019. Continue to monitor. (4) Anemia Current visit: No Status: Chronic Present on almost all 170+ labs since June 2014. Anemia testing showed no factor deficiency. Likely due primarily to chronic kidney disease and venipunctures. Qualifiers: Anemia type: unspecified type Qualified Code(s): D64.9 - Anemia, unspecified (5) DM type 2 (diabetes mellitus, type 2) Current visit: No Status: Chronic Hemoglobin A1c WNL at 5.8% on 08/20/2019. Review of medication sheet from SNF shows no DM 2 meds used. Qualifiers: Diabetes mellitus fpc insulin use: without fpc use Diabetes mellitus complication status: with kidney complications Diabetes mellitus complication detail: with chronic kidney disease Chronic kidney disease stage: stage 4 (severe) Qualified Code(s): E11.22 - Type 2 diabetes mellitus with diabetic chronic kidney disease; N18.4 - Chronic kidney disease, stage 4 (severe) (6) Hypertension Current visit: Yes Status: Chronic Continue amlodipine and lisinopril. Qualifiers: Hypertension type: essential hypertension Qualified Code(s): I10 - Essential (primary) hypertension Internal Medicine - H&P: HPI Chief complaint: Fevers and chills Admitted From: Emergency Dept Plans for Post Hospital Care: Transfer Detention Facility History of present illness: Ms. Diaz is a 59 year old female who was sent to emergency room after intermediate staff reported her to have fever and confusion. She states symptoms onset today. She states she had a cough with minimal productivity. She denies nausea or vomiting but states she has had some diarrhea and stomach discomfort. She was evaluated in emergency room and was found to have evidence of UTI. She was admitted to [facility] floor for ongoing care needs. She has a history of chronic kidney disease stage V and was on hemodialysis until 2010 when she underwent right kidney cadaveric transplant. She follows at [facility] on a every 6-12 month basis. Last visit was April 2019 per her report. Review of labs show creatinine has been stable since April 2019. Past Med Surg Social Fam HX - Past Medical History Medical history: arthritis, cancer, diabetes, dialysis, GERD, hyperlipidemia, hy pertension, osteoporosis, renal disease, seizures Additional medical history: leukemia - remission Psychiatric history: anxiety, depression - Past Surgical History Surgical History: hip replacement, hysterectomy, knee replacement, orthopedic, other, other, tracheostomy Additional surgical history: AKA right leg 04/2019. kidney transplant - Social History Smoking Status: Never smoker Smokeless Tobacco Status: No Alcohol use: none Drug use: none - Family History Mother Living Status: Father History Unknown: Yes Living Status: Still Living Internal Medicine - H&P: Meds Allopurinol [Zyloprim] 300 mg PO DAILY 06/09/17 [History] Sodium Bicarbonate 4 tab PO TID 06/09/17 [History] Calcitriol 0.5 mcg PO DAILY 07/11/18 [History] Dasatinib [Sprycel] 100 mg PO HS 07/11/18 [History] Famotidine [Heartburn Prevention] 20 mg PO DAILY 07/11/18 [History] Folic Acid 1 mg PO DAILY 07/11/18 [History] Mirtazapine 7.5 mg PO HS 07/11/18 [History] hydrALAZINE [HydrALAZINE] 75 mg PO Q8H 07/11/18 [History] predniSONE [PredniSONE] 5 mg PO DAILY 07/11/18 [History] Citalopram Hydrobromide [Citalopram HBr] 20 mg PO DAILY 02/10/19 [History] Cyanocobalamin (Vitamin B-12) [Vitamin B12] 1,000 mcg PO DAILY 02/10/19 [History] Docusate [Colace] 100 mg PO BID 02/10/19 [History] Atemovir 480 PO DAILY 05/11/19 [History] DAPTOmycin [Daptomycin] 400 mg IV QSHIFT 05/11/19 [History] Dronabinol [Marinol] 2.5 mg PO DAILY 05/11/19 [History] Gabapentin [Neurontin] 100 mg PO BID 05/11/19 [History] Acetaminophen [Non-Aspirin] 650 mg PO Q6H PRN 08/23/19 [History] Ascorbic Acid [Vitamin C] 500 mg PO BID 08/23/19 [History] Cephalexin [Keflex] 250 mg PO BID 08/23/19 [History] DiphenhydraMINE [Benadryl] 25 mg PO Q6HR PRN 08/23/19 [History] Letermovir [Prevymis] 480 mg PO HS 08/23/19 [History] Lisinopril [Zestril] 10 mg PO DAILY 08/23/19 [History] Loperamide HCl [Imodium A-D] 2 mg PO Q6HR PRN 08/23/19 [History] Patiromer Calcium Sorbitex [Veltassa] 8.4 gm PO HS 08/23/19 [History] Sennosides [Senna] 2 tab PO DAILY 08/23/19 [History] Tramadol HCl [Ultram] 50 mg PO BID PRN 08/23/19 [History] amLODIPine [Norvasc] 5 mg PO DAILY 08/23/19 [History] Allergy/AdvReac Type Severity Reaction Status Date / Time hydrocodone Allergy See Verified 08/23/19 09:43 Comments hydromorphone [From Dilaudid] Allergy See Verified 08/23/19 09:43 Comments morphine Allergy See Verified 08/23/19 09:43 Comments Penicillins [PCN] Allergy Anaphylaxis Verified 08/23/19 09:43 Sulfa (Sulfonamide Allergy Anaphylaxis Verified 08/23/19 09:43 Antibiotics) All Systems PM: A 10-system review of systems was performed and is negative for pertinent findings except as documented above in the HPI. Review of systems: Gen.: Her weight has decreased from 83.4 kg on 01/05/2017 to present weight of 69.853 kg. Cardiovascular: She has a history of hypertension but denies VT heart failure angina DVT or pulmonary embolus. She thinks she had EST over 10 years ago which was unremarkable Respiratory: She is a lifelong nonsmoker but denies known chronic lung disease. GI: Has GERD but denies disorders of her liver gallbladder or exocrine pancreas : As per history of present illness Neurologic: She denies large distribution strokes or seizures Endocrine: She has hyperlipidemia but denies diabetes or known thyroid disease Hematology/oncology: She denies blood disorders or cancers but has had anemia on all labs since August 2014. Psychiatric: She has depression but denies anxiety or other mental health issues Musculoskeletal: She has rheumatoid arthritis and osteoporosis. She has had spinal surgery at [facility] June 2015 with plate and screw procedure for degenerative disc disease. She has had right AKA since her December [facility] hospitalization but cannot state the date. She had left hip replacement at age 11 and again at age 39. She has been diagnosed with Legg-Perthes disease. - Constitutional Vitals: Temp Pulse Resp BP Pulse Ox 102.1 F H 115 18 124/61 98 08/23/19 15:19 08/23/19 15:19 08/23/19 14:22 08/23/19 14:22 08/23/19 14:22 Exam: Gen.: She is a well-developed well-nourished female resting comfortably in bed who appears in no significant distress HEENT: Head is atraumatic and normocephalic. Eyes: EOMI. There is no scleral icterus. Mouth: Mucosa is moist. Neck: Supple and nontender. There is no thyromegaly or adenopathy noted. Heart: Regular with rate approximately 100/m. Lungs: No wheezes or crackles are heard. Abdomen: Bowel sounds are present but diminished. The abdomen is nontender to palpation. No masses or guarding are noted. Extremities: She has a well-healed right AKA. Her left leg shows slight eversion of the foot at the ankle. There is trace to 1+ edema of the lower anterior mcdaniel. Neurologic: Mental status: She is talkative and a fair historian. She does not remember some details of her history. Cranial nerves: Smile is symmetric. Forehead wrinkles bilaterally. Tongue protrudes midline. EOMI. Motor: There is no pronator drift. Cerebellar: Finger to nose is intact bilaterally. Skin: Warm and dry. Internal Med - H&P Results - Labs CBC & Chem 7: 08/23/19 10:27 08/23/19 10:27 Labs: Short CBC 08/23/19 Range/Units 10:27 WBC 20.7 H (4.3-11.1) K/mcL Hgb 7.1 L (11.5-15.4) g/dL Hct 22.4 L (35.3-44.9) % Plt Count 63 L (140-400) K/mcL Neutrophils # 18.8 H (1.6-8.9) K/mcL BMP 08/23/19 10:27 Sodium 141 Potassium 4.2 Chloride 107 Carbon Dioxide 24 BUN 36 H Creatinine 2.56 H Glucose 129 H Calcium 9.6 Cardiac Enzymes 08/23/19 08/23/19 Range/Units 10:27 13:38 Troponin I 0.11 H* 0.11 H* (< 0.04) ng/mL Liver Function 08/23/19 Range/Units 10:27 Total Bilirubin 0.6 (0.3-1.0) mg/dL Direct Bilirubin 0.2 (0.0-0.2) mg/dL AST 13 (13-39) Units/L ALT 8 (7-52) Units/L Alkaline Phosphatase 329 H (34-104) Units/L Albumin 2.8 L (3.5-5.7) g/dL Urine 08/23/19 Range/Units 10:23 Urine Color Yellow (Yellow) Urine Clarity Cloudy A (Clear) Urine pH 8.5 H (5.0-8.0) pH Units Ur Specific [place] 1.020 (1.010-1.025) Urine Protein 100 H (Neg-Trace) mg/dL Urine Glucose (UA) Normal (Normal) mg/dL - Impressions ITS Impressions Chest X-Ray 08/23/19 10:50 IMPRESSION: Right parahilar infiltrate could represent pneumonia. Follow-up recommended to ensure resolution. Linear opacification left upper lobe most likely represents scarring or atelectasis D/ / Mckinley Finney MD / Mckinley Finney MD Interpreting Provider: Mckinley Finney MD
[2019-08-23] MEDS ORDERED: levoFLOXacin 750 MG/150 ML 750 MG/150 ML BAG IVPB ONE (16:07)
[2019-08-23] MEDS: *HR* Heparin 5,000 UNIT/ML VIAL SQ SCH (17:35)
[2019-08-23] MEDS: Acetaminophen 325 MG TABLET PO SCH (17:36)
[2019-08-23] MEDS: Gabapentin 100 MG CAPSULE PO SCH (20:26)
[2019-08-23] MEDS ORDERED: LETERMOVIR 480 MG PO SCH (21:00)
[2019-08-23] MEDS ORDERED: Patiromer Calcium Sorbitex [Veltassa] 8.4 GM PO SCH (21:00)
[2019-08-23] MEDS ORDERED: Mirtazapine 15 MG TABLET PO SCH (21:00)
[2019-08-23] MEDS ORDERED: Dasatinib [Sprycel] 100 MG PO SCH (21:00)
[2019-08-24 01:06] LABS: Basophils % 0.2 %; Hematocrit 20.6 % (35.3-44.9); Hemoglobin 6.6 g/dL (11.5-15.4); Immature Granulocytes % 3.1 % (0-4); Lymphocytes # 0.4 K/mcL (0.6-4.6); Lymphocytes % 2.4 %; Mean Corpuscular Hemoglobin 31.3 pg (28.0-33.3); Mean Corpuscular Volume 97.6 fL (83.0-100.0); Mean Platelet Volume 8.1 fL (9.4-12.4); Monocytes # 0.6 K/mcL (0.0-1.3); Monocytes % 3.6 %; Neutrophils # 15.8 K/mcL (1.6-8.9); Red Blood Count 2.11 M/mcL (3.82-4.97); Red Cell Distribution Width 20.5 % (11.5-14.5); Segmented Neutrophils % 90.7 %; White Blood Count 17.4 K/mcL (4.3-11.1)
[2019-08-24 01:08] LABS: Platelet Count 45 K/mcL (140-400)
[2019-08-24 01:29] LABS: Calcium 9.2 mg/dL (8.6-10.3); Potassium 4.2 mEq/L (3.5-5.1)
[2019-08-24] MEDS: hydrALAZINE 25 MG TABLET PO SCH ×2 (01:33→09:24)
[2019-08-24] MEDS: Acetaminophen 325 MG TABLET PO SCH ×2 (01:33→03:00)
[2019-08-24] MEDS: *HR* Heparin 5,000 UNIT/ML VIAL SQ SCH (04:08)
[2019-08-24] MEDS ORDERED: Azithromycin 500 MG in 0.9 % Sodium Chloride 250 ML IVPB SCH (09:00)
[2019-08-24] MEDS ORDERED: amLODIPine 5 MG TABLET PO SCH (09:00)
[2019-08-24] MEDS ORDERED: predniSONE 5 MG TABLET PO SCH (09:00)
[2019-08-24] MEDS ORDERED: cefTRIAXone 1,000 MG in 0.9 % Sodium Chloride Mini Bag 100 ML IVPB SCH (09:00)
[2019-08-24] MEDS ORDERED: Sennosides 8.6 MG TABLET PO SCH (09:00)
[2019-08-24] MEDS ORDERED: Folic Acid 1 MG TABLET PO SCH (09:00)
[2019-08-24] MEDS ORDERED: Famotidine 20 MG TABLET PO SCH (09:00)
[2019-08-24] MEDS: Gabapentin 100 MG CAPSULE PO SCH (09:24)
[2019-08-24 09:56] LABS: Acinetobacter baumannii by PCR Not Detected (Not Detect); Candida albicans by PCR Not Detected (Not Detect); Candida glabrata by PCR Not Detected (Not Detect); Candida krusei by PCR Not Detected (Not Detect); Candida parapsilosis by PCR Not Detected (Not Detect); Candida tropicalis by PCR Not Detected (Not Detect); Enterobacter cloacae Cmplx PCR Not Detected (Not Detect); Enterobacteriaceae by PCR Not Detected (Not Detect); Enterococcus by PCR Not Detected (Not Detect); Escherichia coli by PCR Not Detected (Not Detect); Klebsiella oxytoca by PCR Not Detected (Not Detect); Klebsiella pneumoniae by PCR Not Detected (Not Detect); Proteus by PCR Not Detected (Not Detect); Pseudomonas aeruginosa by PCR Not Detected (Not Detect); Serratia marcescens by PCR Not Detected (Not Detect); Staphylococcus aureus by PCR DETECTED (Not Detect); Streptococcus agalactiae(B)PCR Not Detected (Not Detect); Streptococcus by PCR Not Detected (Not Detect); Streptococcus pneumoniae PCR Not Detected (Not Detect); Streptococcus pyogenes (A) PCR Not Detected (Not Detect); mecA Methicillin-Resist Gene DETECTED (Not Detect)
--- NOTE | 2019-08-24 10:08 | Discharge Summary ---
Orders not resulted at time of discharge: Pending orders 08/23/19 10:23 Culture,Urine [RM] Stat 08/23/19 10:30 Culture,Blood [BC] Stat Date of Encounter: 08/24/19 Time of Encounter: 09:50 - Discharge Diagnosis (1) MRSA bacteremia Priority: Primary Status: Acute (2) Urinary tract infection Priority: Secondary Status: Acute Qualifiers: Urinary tract infection type: site unspecified Hematuria presence: without hematuria Qualified Code(s): N39.0 - Urinary tract infection, site not specified (3) Elevated troponin Priority: Secondary Status: Chronic (4) CKD (chronic kidney disease) stage 4, GFR 15-29 ml/min Priority: Secondary Status: Chronic (5) Anemia Priority: Secondary Status: Chronic Qualifiers: Anemia type: unspecified type Qualified Code(s): D64.9 - Anemia, unspecified (6) DM type 2 (diabetes mellitus, type 2) Priority: Secondary Status: Chronic Qualifiers: Diabetes mellitus termination clerk insulin use: without snf use Diabetes mellitus complication status: with kidney complications Diabetes mellitus complication detail: with chronic kidney disease Chronic kidney disease stage: stage 4 (severe) Qualified Code(s): E11.22 - Type 2 diabetes mellitus with diabetic chronic kidney disease; N18.4 - Chronic kidney disease, stage 4 (severe) (7) Hypertension Priority: Secondary Status: Chronic Qualifiers: Hypertension type: essential hypertension Qualified Code(s): I10 - Essential (primary) hypertension Hospital course: Ms. Diaz is a 59 year old female who was sent to emergency room after senior care staff reported her to have fever and confusion. She states symptoms onset today. She states she had a cough with minimal productivity. She denies nausea or vomiting but states she has had some diarrhea and stomach discomfort. She was evaluated in emergency room and was found to have evidence of UTI. She was admitted to [facility] floor for ongoing care needs. I saw her the afternoon of August 23. She was given IV Rocephin and Zithromax empirically in emergency room. A single dose of IV Levaquin was given. Serology returned showing MRSA. Blood cultures were positive for gram positive cocci in 2/2. She was ordered IV vancomycin. Urine culture report is pending at time of transfer. CT of chest abdomen and pelvis was ordered August 23 to further evaluate. She had third spacing of fluid with large right and small left pleural effusion, small pericardial effusion, ascites and anasarca. Severe splenomegaly was noted. Hemoglobin decreased to 6.6 on August 24. WBC had decreased slightly to 17.4 with left shift present on differential. Creatinine was minimally changed to 2.60. BN peptide was 653. The morning of August 24 I spoke with [facility] to arrange transfer for further workup and intervention. - Time Spent with Patient Total time spent providing and/or coordinating discharge services: - Discharge Medications Prescriptions: No Action Allopurinol [Zyloprim] 300 mg PO DAILY Sodium Bicarbonate 4 tab PO TID predniSONE [PredniSONE] 5 mg PO DAILY Mirtazapine 7.5 mg PO HS hydrALAZINE [HydrALAZINE] 75 mg PO Q8H Folic Acid 1 mg PO DAILY Famotidine [Heartburn Prevention] 20 mg PO DAILY Calcitriol 0.5 mcg PO DAILY Dasatinib [Sprycel] 100 mg PO HS Cyanocobalamin (Vitamin B-12) [Vitamin B12] 1,000 mcg PO DAILY Docusate [Colace] 100 mg PO BID Citalopram Hydrobromide [Citalopram HBr] 20 mg PO DAILY Dronabinol [Marinol] 2.5 mg PO DAILY DAPTOmycin [Daptomycin] 400 mg IV QSHIFT Gabapentin [Neurontin] 100 mg PO BID Atemovir 480 PO DAILY Lisinopril [Zestril] 10 mg PO DAILY Cephalexin [Keflex] 250 mg PO BID Loperamide HCl [Imodium A-D] 2 mg PO Q6HR PRN PRN Reason: Diarrhea DiphenhydraMINE [Benadryl] 25 mg PO Q6HR PRN PRN Reason: Allergic Reaction Ascorbic Acid [Vitamin C] 500 mg PO BID amLODIPine [Norvasc] 5 mg PO DAILY Sennosides [Senna] 2 tab PO DAILY Patiromer Calcium Sorbitex [Veltassa] 8.4 gm PO HS Acetaminophen [Non-Aspirin] 650 mg PO Q6H PRN PRN Reason: Pain Tramadol HCl [Ultram] 50 mg PO BID PRN PRN Reason: Pain Letermovir [Prevymis] 480 mg PO HS Home Medications: Allopurinol [Zyloprim] 300 mg PO DAILY 06/09/17 [History] Sodium Bicarbonate 4 tab PO TID 06/09/17 [History] Calcitriol 0.5 mcg PO DAILY 07/11/18 [History] Dasatinib [Sprycel] 100 mg PO HS 07/11/18 [History] Famotidine [Heartburn Prevention] 20 mg PO DAILY 07/11/18 [History] Folic Acid 1 mg PO DAILY 07/11/18 [History] Mirtazapine 7.5 mg PO HS 07/11/18 [History] hydrALAZINE [HydrALAZINE] 75 mg PO Q8H 07/11/18 [History] predniSONE [PredniSONE] 5 mg PO DAILY 07/11/18 [History] Citalopram Hydrobromide [Citalopram HBr] 20 mg PO DAILY 02/10/19 [History] Cyanocobalamin (Vitamin B-12) [Vitamin B12] 1,000 mcg PO DAILY 02/10/19 [History] Docusate [Colace] 100 mg PO BID 02/10/19 [History] Atemovir 480 PO DAILY 05/11/19 [History] DAPTOmycin [Daptomycin] 400 mg IV QSHIFT 05/11/19 [History] Dronabinol [Marinol] 2.5 mg PO DAILY 05/11/19 [History] Gabapentin [Neurontin] 100 mg PO BID 05/11/19 [History] Acetaminophen [Non-Aspirin] 650 mg PO Q6H PRN 08/23/19 [History] Ascorbic Acid [Vitamin C] 500 mg PO BID 08/23/19 [History] Cephalexin [Keflex] 250 mg PO BID 08/23/19 [History] DiphenhydraMINE [Benadryl] 25 mg PO Q6HR PRN 08/23/19 [History] Letermovir [Prevymis] 480 mg PO HS 08/23/19 [History] Lisinopril [Zestril] 10 mg PO DAILY 08/23/19 [History] Loperamide HCl [Imodium A-D] 2 mg PO Q6HR PRN 08/23/19 [History] Patiromer Calcium Sorbitex [Veltassa] 8.4 gm PO HS 08/23/19 [History] Sennosides [Senna] 2 tab PO DAILY 08/23/19 [History] Tramadol HCl [Ultram] 50 mg PO BID PRN 08/23/19 [History] amLODIPine [Norvasc] 5 mg PO DAILY 08/23/19 [History] Allergies/Adverse Reactions: Allergy/AdvReac Type Severity Reaction Status Date / Time hydrocodone Allergy See Verified 08/23/19 09:43 Comments hydromorphone [From Dilaudid] Allergy See Verified 08/23/19 09:43 Comments morphine Allergy See Verified 08/23/19 09:43 Comments Penicillins [PCN] Allergy Anaphylaxis Verified 08/23/19 09:43 Sulfa (Sulfonamide Allergy Anaphylaxis Verified 08/23/19 09:43 Antibiotics) Date of admission: 08/23/19 16:11 Primary care physician: Deshawn Avina MD - Constitutional Vitals: Temp Pulse Resp BP Pulse Ox 99.5 F 87 16 111/59 99 08/24/19 07:02 08/24/19 07:02 08/24/19 07:02 08/24/19 07:02 08/24/19 07:02 - Patient Status Disposition: Transfer Other Condition: Fair - Discharge Instructions
[2019-08-24 10:33] VITALS: BP 125/66
--- NOTE | 2019-08-24 20:40 | Electrocardiograph Report ---
[place] [id number] Test Date: 2019-08-23 Pat Name: Carina Diaz Department: EDP-14 Room: [facility] Gender: F Electrical And Electronic Assembler: : 1960 Requested By: Irvin Johnson Order Number: [id number] Reading MD: Bashir Theodore Measurements Intervals [place] Rate: 105 P: 29 DC: 143 QRS: 7 QRSD: 80 T: 85 QT: 344 QTc: 455 Interpretive Statements Sinus tachycardia Multiple premature complexes, vent & supraven Low voltage, extremity leads BASELINE ARTIFACT Electronically Signed On 08-24-2019 20:38:58 EDT by Bashir Theodore
== END 2019-08-24 11:30 | disposition other institution (70) | DRG 463 ==
LOC: EMEROOPIK 09:37 → INPPIK 09:37
PROVIDERS: ADMIT Internal Medicine; ATTEND Internal Medicine